=== PATIENT | male | born 1960 | race Caucasian/White ===

== ENCOUNTER 2022-06-29 01:41 | Inpatient (IN) | payer OTHER ==
[2022-06-29 01:54] VITALS: BMI 25.8
[2022-06-29 03:39] LABS: BASO % 0.2 % (0-2.0); EOS % 0.5 % (0-4.5); HEMATOCRIT 35.3 % (35.4-49); HEMOGLOBIN 11.4 GM/dL (11.7-16.9); LYMPH % 8.9 % (8-40); MCH 28.1 pg (25.7-33.7); MCHC 32.3 g/dl (32.0-35.9); MEAN CELL VOLUME 86.9 fl (80-96); MEAN PLT VOLUME 8.7 fl (7.5-11.1); NEUT % 71.4 % (42.8-82.8); PLATELET COUNT 171 10^3/uL (134-434); RBC 4.06 M/mm3 (4.00-5.60); RDW 12.6 % (11.9-15.9); WHITE BLOOD COUNT 3.6 K/mm3 (4.0-10.0)
[2022-06-29 03:41] LABS: INR 1.38 (0.83-1.09); PROTHROMBIN TIME (PATIENT) 15.9 SEC (9.7-13.0)
[2022-06-29 03:44] LABS: ACTIVATED PTT 38.8 SECONDS (25.2-36.5)
[2022-06-29] MEDS ORDERED: VANCOMYCIN 1 GM in D5W (PRE-DOCKED) 1,000 MG/250 ML IVPB ONE (03:46)
[2022-06-29 04:03] LABS: CALCIUM 8.3 mg/dL (8.5-10.1)
[2022-06-29 04:04] LABS: ALBUMIN 2.8 g/dl (3.4-5.0); BLOOD UREA NITROGEN 36.2 mg/dL (7-18); MAGNESIUM 2.4 mg/dL (1.8-2.4)
[2022-06-29 04:07] LABS: CREATININE 2.3 mg/dL (0.55-1.3)
[2022-06-29 04:08] LABS: BILIRUBIN,TOTAL 0.3 mg/dL (0.2-1)
[2022-06-29 04:09] LABS: TOT PROT 5.7 g/dl (6.4-8.2)
[2022-06-29] MEDS ORDERED: DEXAMETHASONE SOD PHOSPHATE 4 MG/1 ML VIAL IVPUSH ONE (04:15)
[2022-06-29] MEDS ORDERED: VANCOMYCIN/WATER FOR INJ (PEG) 1,000 MG/200 ML BAG IVPB ONE (04:17)
[2022-06-29] MEDS ORDERED: ALBUTEROL SO4 2.5/IPRATROPIUM 0.5 INH SOL 3 ML VIAL.NEB. NEB ONE ×2 (05:17→05:35)
[2022-06-29] MEDS ORDERED: ACETAMINOPHEN 325 MG TABLET (FP) PO PRN (06:49)
[2022-06-29] MEDS ORDERED: MAG HYDROX/AL HYDROX/SIMETH 30 ML UNIT-DOSE CUP PO PRN (06:49)
[2022-06-29] MEDS ORDERED: ALBUTEROL SO4 0.083% IH SOL 2.5 MG/3 ML VIAL.NEB. NEB PRN (06:49)
[2022-06-29] MEDS ORDERED: ALBUTEROL SO4 2.5/IPRATROPIUM 0.5 INH SOL 3 ML VIAL.NEB. NEB PRN (06:49)
[2022-06-29] MEDS ORDERED: SULFAMETHOXAZOLE/TRIMETHOPRIM 800MG/160MG D.S. TABLET PO SCH (07:00)
[2022-06-29] MEDS ORDERED: INSULIN SLIDING SCALE (NOVOLOG) 1 VIAL SQ SCH (07:00)
[2022-06-29] MEDS ORDERED: AZITHROMYCIN 250 MG TABLET PO SCH (07:00)
[2022-06-29] MEDS ORDERED: SODIUM CHLORIDE 1,000 ML IV SCH (07:45)
[2022-06-29] MEDS ORDERED: PIPERACILLIN/TAZOB 2.25 GM 2.25 GM in DEXTROSE 5%-WATER - 50 ML IVPB SCH ×2 (07:45→10:00)
[2022-06-29] MEDS ORDERED: BUDESONIDE 0.25 MG/2ML INH SUSP VIAL NEB SCH (08:00)
[2022-06-29] MEDS ORDERED: TAMSULOSIN HCL 0.4 MG CAP PO SCH (08:30)
[2022-06-29] MEDS ORDERED: PIPERACILLIN/TAZOB 2.25 GM 2.25 GM/50 ML BAG IVPB ONE (09:29)
[2022-06-29 09:49] VITALS: RESP 26
[2022-06-29] MEDS ORDERED: METHYLPHENIDATE PO SCH (10:00)
[2022-06-29] MEDS ORDERED: ACYCLOVIR 200 MG CAPSULE PO SCH (10:00)
[2022-06-29] MEDS ORDERED: CALCIUM 500MG/VIT-D 200 UNITS COMBO TABLET (FP) PO SCH (10:00)
[2022-06-29] MEDS ORDERED: FOLIC ACID 1 MG TABLET (FP) PO SCH (10:00)
[2022-06-29] MEDS ORDERED: FLUTICASONE PROP 0.05% 16 GM NASAL SPRAY NS SCH (10:00)
[2022-06-29] MEDS ORDERED: MAGNESIUM OXIDE 400 MG TABLET (FP) PO SCH (10:00)
[2022-06-29] MEDS ORDERED: MYCOPHENOLATE MOFETIL 500 MG TABLET PO SCH (10:00)
[2022-06-29] MEDS ORDERED: CARVEDILOL 6.25 MG TABLET (FP) PO SCH (10:00)
[2022-06-29] MEDS ORDERED: APIXABAN 2.5 MG TABLET PO SCH (10:00)
[2022-06-29] MEDS ORDERED: predniSONE 10 MG TABLET (UD) PO SCH (10:00)
[2022-06-29] MEDS ORDERED: LACTULOSE 20 GM/30 ML UDC (FOR ORAL USE ONLY) PO SCH (10:00)
[2022-06-29] MEDS ORDERED: FAMOTIDINE 20 MG TABLET PO SCH ×2 (10:00)
[2022-06-29] MEDS ORDERED: SULFAMETHOXAZOLE/TRIMETHOPRIM 800MG/160MG D.S. TABLET ONE (10:15)
[2022-06-29] MEDS ORDERED: AZITHROMYCIN 250 MG TABLET ONE (10:16)
[2022-06-29] MEDS ORDERED: ACYCLOVIR 200 MG CAPSULE ONE (10:21)
[2022-06-29 11:38] VITALS: BP 108/83; PULSE 113; TEMP 98.3
[2022-06-29] MEDS ORDERED: hydrOXYzine PAMOATE 50 MG CAPSULE (FP) PO SCH (14:00)
== END 2022-06-29 11:57 | disposition short-term general hospital (02) | DRG 208 ==
LOC: JER 01:41 → JERBED 04:46
PROVIDERS: ADMIT Internal Medicine; ATTEND Internal Medicine
PROC: 5A1935Z Respiratory Ventilation, Less than 24 Consecutive Hours (ICD-10-PCS; principal; 2022-06-29)
DX: U07.1 COVID-19 (principal); J12.82 Pneumonia due to coronavirus disease 2019; J96.21 Acute and chronic respiratory failure with hypoxia; I13.0 Hypertensive heart and chronic kidney disease with heart failure and stage 1 through stage 4 chronic kidney disease, or unspecified chronic kidney disease; I50.32 Chronic diastolic (congestive) heart failure; J44.0 Chronic obstructive pulmonary disease with (acute) lower respiratory infection; Z94.2 Lung transplant status; D84.9 Immunodeficiency, unspecified; N17.9 Acute kidney failure, unspecified; Z93.0 Tracheostomy status; K21.9 Gastro-esophageal reflux disease without esophagitis; N40.0 Benign prostatic hyperplasia without lower urinary tract symptoms; N18.2 Chronic kidney disease, stage 2 (mild)
CPT/HCPCS: 0241U-QW; 36415; 71045-TC-FY; 80053; 83605; 83735; 84484; 85025; 85610; 85730; 87040; 93005; 93010; 94002; 99285-25